=== PATIENT | female | born 1995 | race Caucasian/White ===

== ENCOUNTER 2021-04-03 08:49 | Emergency (ER) | payer OTHER, SELFPAY ==
[2021-04-03 09:26] VITALS: BP 167/89; PULSE 78; RESP 16; TEMP 36.4; O2SAT 100; BMI 38.4
--- NOTE | 2021-04-03 09:30 | ED_ITS ---
HPI - General: Chief complaint: Vaginal Bleeding Stated complaint: 5 weeks bleeding Time Seen by Provider: 04/03/21 08:55 History of Present Illness: HPI Narrative: Patient is a 25-year-old female that is 5 weeks and comes to the ED with vaginal bleeding. Bleeding started on Wednesday. Bleeding is reported as very light and she only notices some red blood when she wipes after going to the bathroom. she denies any fever, chills, nausea/emesis, abdominal pain or cramping. Denies any UTI symptoms or bowel symptoms. Date of Last Menstrual Period: 02/22/21 Associated symptoms: Deny abdominal pain, dysuria, headache(s), nausea or vomiting Review of Systems Const: Denies: fever(s), chills or fatigue Eyes: Denies: change in vision or eye discomfort ENMT: Denies: throat pain, odynophagia, nasal discharge or nasal congestion Card: Denies: chest pain, palpitations, edema, swelling of feet/ankles, dyspnea on exertion or orthopnea Resp: Denies: dyspnea, productive cough or non-productive cough GI: Denies: abdominal pain, nausea, vomiting, diarrhea, constipation or hematochezia : Reports: vaginal bleeding; Denies: flank pain, dysuria or hematuria Musc: Denies: neck pain, back pain or extremity swelling Skin/Breast: Denies: rash or new lesions Neuro: Denies: headache(s), numbness in extremities or weakness in extremities [facility] Female Reproductive History: Date of last menstrual period: 02/22/21 Physical Exam Const: COMMON NORMALS: no acute distress, patient oriented x3, healthy appearing and alert GENERAL APPEARANCE: cooperative and comfortable HENMT: COMMON NORMALS: normocephalic HEAD & SCALP: normocephalic MOUTH: Normal oral and palatal mucosa present THROAT: posterior oropharynx normal and uvula midline Neck/C-Spine: COMMON NORMALS: supple GENERAL: Yes normal visual inspection Resp: COMMON NORMALS: normal respiratory effort, No retractions, No use of accessory muscles and clear to auscultation bilaterally AUSCULTATION: clear to auscultation bilaterally Cardio: COMMON NORMALS: regular rate, regular rhythm, S1 normal heart sound present, S2 normal heart sound present, No gallops present (Cardio), No clicks present (Cardio), No murmurs present (Cardio) and Peripheral pulses 2+ throughout RATE: regular rate RHYTHM: regular rhythm HEART SOUNDS: S1 normal heart sound present and S2 normal heart sound present PERIPHERAL PULSES: Peripheral pulses 2+ throughout GI: COMMON NORMALS: Normal to inspection, nondistended, normoactive bowel sounds present, Soft to palpation, non-tender and no masses PALPATION: Yes Soft to palpation OTHER: Patient's abdomen is nontender to palpation. : COMMON NORMALS: Yes no CVA tenderness BLADDER/KIDNEY EXAM: Yes no CVA tenderness Back/Pelvis: COMMON NORMALS: no CVA tenderness Extremity: COMMON NORMALS: normal to inspection Neuro: COMMON NORMALS: patient oriented x3 and moves all extremities SENSORIUM/ORIENTATION: Yes alert Skin: GENERAL SKIN EXAM: dry skin Course Vital Signs: Vital signs: Vital Signs Temperature 98.7 F 04/03/21 13:03 Pulse Rate 89 04/03/21 13:37 Respiratory Rate 14 04/03/21 13:03 Blood Pressure 130/77 04/03/21 13:37 Pulse Oximetry 100 04/03/21 13:37 MDM - OB/Uterine Contractions MDM Narrative: Medical decision making narrative: Patient is a 25-year-old female comes to the ED 5 weeks and has some vaginal bleeding. Vaginal bleeding is light and patient only notices it after going to the bathroom after she wipes. Denies any abdominal pain, nausea/vomiting, fever or UTI symptoms. Vital stable. Patient appears healthy no acute distress the rest of exam is benign. CBC, UA and CMP are unremarkable. hCG quant 8,502. patient is Rh- and this is her second . OB ultrasound showed an intrauterine that is a little over 5 weeks in gestation. No heart rate detected yet but it is possibly too early to see it. Patient was given RhoGam today while in the ED. Radiologist recommended another ultrasound in a week to check for heart rate. Patient was discharged home and told to contact her OB doctor and have repeat hCG quant labs done in 3 days and to have an ultrasound done as well in about a week. Return to ED precautions given. Patient understood and agreed with plan. Lab Data: Attestation: I reviewed the patient's lab results. Labs: Lab Results 04/03/21 04/03/21 04/03/21 Range/Units 10:25 10:25 10:25 WBC 7.8 (4.0-10.0) 10^3/ uL RBC 4.81 (4.1-5.3) 10^6/u L Hgb 14.1 (11.5-15.3) g/dL Hct 42.3 (37.0-47.0) % MCV 87.9 (81-99) fL MCH 29.3 (28.0-34.0) pg MCHC 33.3 (30.0-36.0) g/dL RDW 12.7 (12.1-15.1) % Plt Count 323 (130-400) 10^3/c mm MPV 9.2 (7.4-10.4) fL Neut % (Auto) 60.7 % Lymph % (Auto) 28.9 % [place] % (Auto) 9.2 % Eos % (Auto) 0.5 % Baso % (Auto) 0.4 % Neut # (Auto) 4.76 (1.8-7.7) 10^3/u L Lymph # (Auto) 2.3 (0.8-4.8) 10^3/u L [place] # (Auto) 0.7 (0.2-0.9) 10^3/u L Eos # (Auto) 0.0 (0.0-0.8) 10^3/u L Baso # (Auto) 0.0 (0.0-0.1) 10^3/u L Nucleated RBC % (a uto) 0 % Nucleated RBCs # 0.0 /100WBC Sodium 136 (136-145) mmol/L Potassium 3.8 (3.5-5.1) mmol/L Chloride 101 (98-107) mmol/L Carbon Dioxide 23 (22-29) mmol/L Anion Gap 15.8 (5-19) BUN 6 (6-20) mg/dL Creatinine 0.6 (0.5-0.9) mg/dL GFR Calculation 119.9 (90-130) mL/min Glucose 79 (65-115) mg/dL Calculated Osmolal ity 279 L (285-295) mOsm/k g Calcium 9.0 (8.5-10.5) mg/dL Total Bilirubin 0.3 (0.15-1.2) mg/dL AST 24 (0-32) U/L ALT 51 H (0-33) U/L Alkaline Phosphata se 69 (35-105) IU/L Total Protein 7.1 (6.6-8.7) g/dL Albumin 4.4 (3.5-5.2) g/dL Globulin 2.7 (1.3-4.6) g/dL Ser , Kenny i-Qnt 8502.00 mIU/mL Urine Color (Yellow) Urine Appearance (CLEAR) Urine pH (5-7) Ur Specific Gravit y (1.005-1.030) Urine Protein (Negative) Urine Glucose (UA) (Normal) Urine Ketones (Negative) Urine Blood (Negative) Urine Nitrate (Negative) Urine Bilirubin (Negative) Prot Sulfosalicyli c Acd (Negative) Urine Urobilinogen (Negative) mg/dL Ur Leukocyte Iram ase (Negative) Urine RBC (0-2) /hpf Urine WBC (0-5) /hpf Ur Squamous Epith Cells (0-5) /hpf Amorphous Sediment Urine Bacteria (NONE) /hpf Urine Mucus /hpf Blood Type A Negative Rho(D) Type Negative / 0 Antibody Screen Negative 04/03/21 Range/Units 10:25 WBC (4.0-10.0) 10^3/ uL RBC (4.1-5.3) 10^6/u L Hgb (11.5-15.3) g/dL Hct (37.0-47.0) % MCV (81-99) fL MCH (28.0-34.0) pg MCHC (30.0-36.0) g/dL RDW (12.1-15.1) % Plt Count (130-400) 10^3/c mm MPV (7.4-10.4) fL Neut % (Auto) % Lymph % (Auto) % [place] % (Auto) % Eos % (Auto) % Baso % (Auto) % Neut # (Auto) (1.8-7.7) 10^3/u L Lymph # (Auto) (0.8-4.8) 10^3/u L [place] # (Auto) (0.2-0.9) 10^3/u L Eos # (Auto) (0.0-0.8) 10^3/u L Baso # (Auto) (0.0-0.1) 10^3/u L Nucleated RBC % (a uto) % Nucleated RBCs # /100WBC Sodium (136-145) mmol/L Potassium (3.5-5.1) mmol/L Chloride (98-107) mmol/L Carbon Dioxide (22-29) mmol/L Anion Gap (5-19) BUN (6-20) mg/dL Creatinine (0.5-0.9) mg/dL GFR Calculation (90-130) mL/min Glucose (65-115) mg/dL Calculated Osmolal ity (285-295) mOsm/k g Calcium (8.5-10.5) mg/dL Total Bilirubin (0.15-1.2) mg/dL AST (0-32) U/L ALT (0-33) U/L Alkaline Phosphata se (35-105) IU/L Total Protein (6.6-8.7) g/dL Albumin (3.5-5.2) g/dL Globulin (1.3-4.6) g/dL Ser , Kenny i-Qnt mIU/mL Urine Color Yellow (Yellow) Urine Appearance Clear (CLEAR) Urine pH 8 H (5-7) Ur Specific Gravit y 1.005 (1.005-1.030) Urine Protein Neg (Negative) Urine Glucose (UA) Norm (Normal) Urine Ketones Negative (Negative) Urine Blood 2+ H (Negative) Urine Nitrate Negative (Negative) Urine Bilirubin Neg (Negative) Prot Sulfosalicyli c Acd Negative (Negative) Urine Urobilinogen Norm (Negative) mg/dL Ur Leukocyte Iram ase Trace H (Negative) Urine RBC Rare (0-2) /hpf Urine WBC 0-4 H (0-5) /hpf Ur Squamous Epith Cells 0-4 H (0-5) /hpf Amorphous Sediment Not Reportable Urine Bacteria Trace (NONE) /hpf Urine Mucus Trace /hpf Blood Type Rho(D) Type Antibody Screen Imaging Data^: US OB: Attestation: I personally reviewed and interpreted this imaging study as follows: Radiologist's impression: [address] [place] [address] Ultrasound Report Signed Patient: Howard Hazel Unit #: [id number] : 1995 Age/Sex: 25 / F ADM Date: 04/03/21 Loc: ER Room/Bed: Attending Dr: Ordering Provider/Ordering MD: Chris Cohen Date of Service: 04/03/21 Procedure(s): US OB <=14 wk fetus w transvag Accession Number(s): [id number] Report Number: [id number] WS: [id number] EARLY OBSTETRICAL ULTRASOUND (<14 WEEKS). HISTORY: 5 weeks and vaginal bleeding COMPARISON: None available. Single intrauterine gestational sac is identified normally positioned along the endometrium. There is a yolk sac present. [place]-rump length of 0.2 cm corresponds to gestational age of 5 weeks and 5 days. No cardiac activity. Cervix is closed. Enlarged RIGHT ovary. Thick wall cyst associated with the RIGHT ovary is probably a corpus luteum. The entire complex measures 4.3 x 2.9 x 3.4 cm. There is normal vascularity. LEF T ovary is normal size. US/US OB <=14 wk fetus w transvag IMPRESSION: 1. Single intrauterine gestation of 5 weeks and 5 days. No cardiac activity at this time. Recommend one week follow-up to confirm developing cardiac activity. 2. Enlarged RIGHT ovary with a cyst and a corpus luteal cyst. Dictated By: Ginny Bautista DO Signed By: Ginny Bautista DO Signed Date/Time: 04/03/21 1255 DD/ 1251 Discharge Plan Discharge Patient Disposition: Home Clinical Impression: Vaginal bleeding before 22 weeks gestation Condition: Stable Prescriptions: No Action Multivitamins 28 mg iron- 800 mcg Tablet 1 tab PO DAILY RF: 0 Metamucil 3.4 gram/5.4 gram Powder 1 tbsp PO QPM RF: 0 Discharge Orders: Discharge ED (Routine); Ordered 04/03/21 Ordered By: Chris Cohen Referrals: Tripp Blandon MD [Primary Care Provider] - Discharge Diet: Regular Discharge Activity: Increase activity as tolerated Activity Restrictions/Additional Instructions: Follow-up with OB provider within the next week for reevaluation. Have hCG quant level rechecked in 3 days. Take [id number] Tylenol for any fever or pain. Return to the ER or your medical provider if condition worsens. Please read and understand discharge instructions. [email or web address]. Please realize this is an emergency room and that we are providing you with a medical screening exam and this may not be complete and all inclusive of all the testing and or work up that you may need to determine your ailment or severity of your illness. It is very important that you follow up as instructed or that you return to the Emergency Department should you have concerns or if your condition changes or worsens in any way. Coding Level of Care Code ED French Professor for Alayna Fwd Exam Comprehensive
--- NOTE | 2021-04-03 10:24 | US_ITS ---
WS: [id number] EARLY OBSTETRICAL ULTRASOUND (<14 WEEKS). HISTORY: 5 weeks and vaginal bleeding COMPARISON: None available. Single intrauterine gestational sac is identified normally positioned along the endometrium. There is a yolk sac present. [place]-rump length of 0.2 cm corresponds to gestational age of 5 weeks and 5 days . No cardiac activity. Cervix is closed. Enlarged RIGHT ovary. Thick wall cyst associated with the RIGHT ovary is probably a corpus luteum. Th e entire complex measures 4.3 x 2.9 x 3.4 cm. There is normal vascularity. LEFT ovary is normal size. US/US OB <=14 wk fetus w transvag IMPRESSION: 1. Single intrauterine gestation of 5 weeks and 5 days. No cardiac activity at this time. Recommend one week follow-up to confirm developing cardiac activity . 2. Enlarged RIGHT ovary with a cyst and a corpus luteal cyst.
[2021-04-03 10:36] LABS: Basophils % 0.4 %; Eosinophils % 0.5 %; Hematocrit 42.3 % (37.0-47.0); Hemoglobin 14.1 g/dL (11.5-15.3); Lymphocytes # 2.3 10^3/uL (0.8-4.8); Lymphocytes % 28.9 %; Mean Corpuscular HGB Conc 33.3 g/dL (30.0-36.0); Mean Corpuscular Hemoglobin 29.3 pg (28.0-34.0); Mean Corpuscular Volume 87.9 fL (81-99); Mean Platelet Volume 9.2 fL (7.4-10.4); Monocytes # 0.7 10^3/uL (0.2-0.9); Monocytes % 9.2 %; Neutrophils # 4.76 10^3/uL (1.8-7.7); Neutrophils % 60.7 %; Nucleated Red Blood Cells % 0 %; Platelet Count 323 10^3/cmm (130-400); Red Blood Count 4.81 10^6/uL (4.1-5.3); Red Cell Distribution Width 12.7 % (12.1-15.1); White Blood Count 7.8 10^3/uL (4.0-10.0)
[2021-04-03 11:34] LABS: Alanine Aminotransferase 51 U/L (0-33); Albumin Level 4.4 g/dL (3.5-5.2); Alkaline Phosphatase 69 IU/L (35-105); Anion Gap 15.8 (5-19); Aspartate Amino Transferase 24 U/L (0-32); Blood Urea Nitrogen 6 mg/dL (6-20); Carbon Dioxide 23 mmol/L (22-29); Chloride 101 mmol/L (98-107); Globulin 2.7 g/dL (1.3-4.6); Glomerular Filtration Rate 119.9 mL/min (90-130); Glucose 79 mg/dL (65-115); Osmolality Calculated 279 mOsm/kg (285-295); Potassium 3.8 mmol/L (3.5-5.1); Sodium 136 mmol/L (136-145); Total Bilirubin 0.3 mg/dL (0.15-1.2); Total Protein 7.1 g/dL (6.6-8.7)
[2021-04-03 11:35] LABS: Urine Appearance Clear (CLEAR); Urine Color Yellow (Yellow); pH Urine 8 (5-7)
[2021-04-03 11:36] LABS: Bilirubin Urine Neg (Negative); Blood Urine 2+ (Negative); Glucose Urine UA Norm (Normal); Ketones Urine Negative (Negative); Leukocyte Esterase Urine Trace (Negative); Nitrate Urine Negative (Negative); Protein Urine Neg (Negative); Specific Gravity, Urine 1.005 (1.005-1.030); Sulfosalicylic Acid Urine Negative (Negative); Urobilinogen Urine Norm (Negative)
[2021-04-03 11:38] LABS: RBC Urine RARE /hpf (0-2); Squamous Epithelial Cell Urine 0-4 /hpf (0-5); WBC Urine 0-4 /hpf (0-5)
[2021-04-03 11:39] LABS: Add Urine Culture? No; Bacteria Urine TRACE /hpf; Mucus Urine TRACE /hpf
[2021-04-03 13:03] VITALS: BP 128/62; PULSE 62; RESP 14; TEMP 37.1; O2SAT 99
[2021-04-03 13:37] VITALS: BP 130/77; PULSE 89; O2SAT 100
== END 2021-04-03 13:39 | disposition home or self-care (01) ==
PROVIDERS: Emergency Provider Physician Assistant; PCP Family Medicine
DX: O20.9 Hemorrhage in early pregnancy, unspecified (principal); Z3A.01 Less than 8 weeks gestation of pregnancy; O26.891 Other specified pregnancy related conditions, first trimester; Z67.91 Unspecified blood type, Rh negative
CPT/HCPCS: 76801; 76817; 80053; 81001; 84702; 85025; 86850; 86900; 90384; 99283

== ENCOUNTER 2021-10-10 14:50 | Outpatient (CLI) | payer OTHER, SELFPAY ==
[2021-10-10 14:50] VITALS: BMI 40.3
[2021-10-10 15:29] LABS: Actim Prom Negative
== END 2021-10-10 15:35 | disposition home or self-care (01) ==
LOC: OPOB 14:59 → OBGYN 15:00
PROVIDERS: PCP Family Medicine; Visit Provider Family Medicine
DX: O26.899 Other specified pregnancy related conditions, unspecified trimester (principal); Z3A.00 Weeks of gestation of pregnancy not specified; N89.8 Other specified noninflammatory disorders of vagina
CPT/HCPCS: 83986; 84112

== ENCOUNTER 2021-11-12 19:02 | Inpatient (IN) | payer OTHER, SELFPAY ==
[2021-11-12] VITALS (39 sets, daily range): BP systolic 120–174; BP diastolic 55–86; PULSE 76–104; RESP 15; O2SAT 100; BMI 40.3
[2021-11-12 19:45] LABS: Nitrazine Paper, PH Positive
[2021-11-12 19:52] LABS: Basophils % 0.1 %; Eosinophils % 0.1 %; Hematocrit 34.9 % (37.0-47.0); Hemoglobin 12.2 g/dL (11.5-15.3); Lymphocytes # 1.8 10^3/uL (0.8-4.8); Lymphocytes % 21.4 %; Mean Corpuscular Hemoglobin 30.6 pg (28.0-34.0); Mean Corpuscular Volume 87.5 fl (81-99); Mean Platelet Volume 9.2 fL (7.4-10.4); Monocytes # 0.7 10^3/uL (0.2-0.9); Monocytes % 8.3 %; Neutrophils % 69.7 %; Nucleated Red Blood Cells % 0 %; Platelet Count 256 10^3/cmm (130-400); Red Blood Count 3.99 10^6/uL (4.1-5.3); Red Cell Distribution Width 12.7 % (12.1-15.1); White Blood Count 8.5 10^3/uL (4.0-10.0)
[2021-11-12] MEDS: dextrose 5%-lactated ringers 1,000 ML 125 ML IV (20:36)
[2021-11-12] MEDS: oxytocin 30 UNIT/500 ML BAG IV (20:37)
[2021-11-12] MEDS: lactated ringers 1,000 ML 999 ML IV ×2 (21:20→22:24)
--- NOTE | 2021-11-12 22:18 | ANES.PREANE2 ---
Pre-Anesthetic Assessment Height/Weight: Height 1.75 m Weight 123.831 kg Pulse BP 86 128/75 11/12/21 22:02 11/12/21 22:02 Preop Diagnosis: labor pain epidural Familial anesthetic complications: none Was Beta Tamir taken within 24 hours: N/A Was Clonidine taken within 24 hours: N/A Social No alcohol and No tobacco Exam alert, oriented x 3, clear to auscultation bilaterally and regular rate & rhythm Airway Submandibular: within normal limits Cervical ROM: within normal limits Mallampati: Class II Dentition: full Pulmonary None reported CV/HEM None reported None reported Hepatic None reported GI None reported Metabolic None reported Musc/skel None reported Neuropsych None reported Anesthetic Plan ASA status: 2 Anesthesia: Regional (specify below) Risk of > 500 ml blood loss (7ml/kg in children): No Medications/Allergies Home Medications Medication Instructions Recorded Confirmed Last Taken Type vit no.95-ferrous 1 tab PO DAILY 04/03/21 10/10/21 11/11/21 20:30 History fumarate 28 mg-folic acid 800 mcg tablet ( Multivitamins) psyllium husk 3.4 gram/5.4 gram 1 tbsp PO QPM 04/03/21 10/10/21 04/02/21 History oral powder (Metamucil) Allergies Allergy/AdvReac Type Severity Reaction Status Date / Time No Known Allergies Allergy Verified 10/10/21 19:32 Current Medications Generic Name Dose Route Start Last Admin Trade Name Freq PRN Reason Stop Dose Admin Dextrose/Lactated Ringer's 1,000 mls @ 125 mls/hr 11/12/21 18:45 11/12/21 20:36 Dextrose 5%-Lactated Ringers IV 125 mls/hr .Q8H SUSAN Administration Oxytocin 30 unit in 500 mls @ 1 mls/hr 11/12/21 19:30 11/12/21 21:20 Pitocin IV 5 milliunit/min .Q24H SUSAN 5 mls/hr Titration Protocol 1 MILLIUNIT/MIN Lactated Ringer's 1,000 mls @ 999 mls/hr 11/12/21 21:14 11/12/21 21:20 Lactated Ringers IV 999 mls/hr .Q1H1M PRN Administration See label comments PFSH Anesthesia Female Reproductive History Date of last menstrual period: 02/22/21 : 2 Data Anesthesia : 11/12/21 19:30 Short CBC 11/12/21 Range/Units 19:30 WBC 8.5 (4.0-10.0) 10^3/uL Hgb 12.2 (11.5-15.3) g/dL Hct 34.9 L (37.0-47.0) % MCV 87.5 (81-99) fl Plt Count 256 (130-400) 10^3/cmm Neut % (Auto) 69.7 % Neut # (Auto) 5.90 (1.8-7.7) 10^3/uL Cardiac Studies: No Data to Display
--- NOTE | 2021-11-12 22:56 | P.ANES_ITS ---
Anesthesia Procedures Procedure/Date: 11/12/21 epidural Procedure Narrative: epidural complete, bolus given, epidural pump initiated with INSPECTOR WATCH ASSEMBLY education given, vitals taken during procedure using OBIX system and satisfactory throughout, patient admits to decrease pain, report of procedure to OB RN Epidural: Time Out Performed: Yes Consents Signed: Procedure Consent Consent: requested by attending/covering physician, from patient, risks and benefits reviewed and patient agrees to proceed Lumbar Level: L3-L4 Epidural position: sitting Epidural procedure: sterile prep of area, 1% lidocaine to numb the area (3 mL), 18 g needle, negative for paresthesia passed, neg for paresthesia, test dose given, 1.5% xylocaine 1:200k epi (5 mL), 0.2% Ropivacaine bolus ml (5 mL), placed PCEA, no systemic response, sterile dressing applied, L.U.D. no apparent complications and 0.2% Ropiavacaine @ mls/hr (13 mL/hr)
[2021-11-13] VITALS (26 sets, daily range): BP systolic 115–147; BP diastolic 57–92; PULSE 62–100; RESP 14–17; TEMP 36.2–36.5; O2SAT 97
--- NOTE | 2021-11-13 02:44 | P.PCNOB_ITS ---
Delivery Note: Date of delivery: November 13, 2021 Pre-Delivery Course: The patient had routine care at [facility] with Dr. Blandon. This physician is covering while he is out of town. The patient was blood type a negative antibody positive for anti-D titer<1:1, GC chlamydia negative, hepatitis B surface antigen nonreactive, hepatitis C antibody nonreactive, HIV nonreactive, rubella immune, RPR nonreactive, UDS negative, Qnatal low risk, she passed her glucose tolerance test. She was also GBS negative. Delivery: This is a 25-year-old G2, P1 at 37 weeks 5 days gestation who presented to labor and delivery with spontaneous rupture of membranes. This happened around 1610 on 11/12, the day of admission. The patient was admitted for expectant management. She was not [place] on her own so Pitocin was used to augment. She did receive an epidural for pain management. Her labor progressed rather quickly after receiving the epidural and she had a normal spontaneous vaginal delivery of a viable male weight 3600 g, 7 pounds 15 ounces. The infant was suctioned at delivery and placed on the mother's chest. The cord was clamped and cut. Cord blood was obtained. The p lacenta was delivered grossly intact and normal to inspection. There was a first-degree perineal laceration that was sutured using 3-0 chromic. Estimated blood loss 150 mL. Mother and infant were doing well after delivery Coding Level of Care Code Acute Para Machine Operator for Alayna Merrill
--- NOTE | 2021-11-13 02:44 | PM.OPHPUD ---
Labor & Delivery H&P Update Date of Procedure: November 13, 2021 Date H&P Performed: 11/13/21 Admission Diagnosis: Preop diagnosis: labor pain
[2021-11-13] MEDS: acetaminophen 325 mg Tablet 650 MG PO (06:05)
[2021-11-13] MEDS: docusate sodium 100 mg Capsule PO (09:09)
[2021-11-13] MEDS: ibuprofen 800 mg tablet PO ×3 (09:09→21:02)
[2021-11-13] MEDS: prenatal vitamin Capsule 1 CAP PO (09:10)
--- NOTE | 2021-11-13 10:34 | PC.NURSE ---
pt ambulated to OB 8. oriented to room/call light and proud parent pack. IV removed, shower supplies provided.
--- NOTE | 2021-11-13 13:46 | ANE.PACU2 ---
Inpatient post-anesthesia follow up: Airway intact: Yes Vital signs: Temperature 97.6 F Pulse Rate 79 Respiratory Rate 16 Blood Pressure 121/81 Pulse Oximetry 100 Oxygen Delivery Me thod Room Air Oxygen Flow Rate Fraction of Inspir ed Oxygen Hydration adequate: Yes Nausea and vomiting: No Pain level: 1 Mental status: Baseline
[2021-11-13 14:58] LABS: Hematocrit 32.5 % (37.0-47.0); Mean Corpuscular HGB Conc 33.8 g/dL (30.0-36.0); Mean Corpuscular Hemoglobin 29.9 pg (28.0-34.0); Mean Corpuscular Volume 88.3 fl (81-99); Mean Platelet Volume 9.5 fL (7.4-10.4); Platelet Count 240 10^3/cmm (130-400); Red Blood Count 3.68 10^6/uL (4.1-5.3); Red Cell Distribution Width 12.7 % (12.1-15.1); White Blood Count 9.3 10^3/uL (4.0-10.0)
[2021-11-14 04:21] VITALS: BP 105/63; PULSE 64; RESP 14; O2SAT 97
[2021-11-14] MEDS: prenatal vitamin Capsule 1 CAP PO (09:26)
[2021-11-14] MEDS: docusate sodium 100 mg Capsule PO (09:26)
[2021-11-14] MEDS: ibuprofen 800 mg tablet PO (09:26)
[2021-11-14 12:04] VITALS: PULSE 62; RESP 18
--- NOTE | 2021-11-14 12:30 | P.DS_ITS ---
Discharge Providers Date of Admission: 11/12/21 19:02 Date of Discharge: November 14, 2021 Attending Provider at Admission: Elham Rivera MD Attending Provider at Discharge: Elham Rivera MD Primary Care Provider: Tripp Blandon MD Reason for Visit Reason for Visit: labor Hospital Course Hospital Course This is a 25-year-old G2 now P2 who was admitted after having spontaneous rupture of membranes. Her labor was augmented using Pitocin and she had a normal spontaneous vaginal delivery of a viable male infant. She did well and on day #1 she was ambulating, tolerating a regular diet, had no pain, and had decreased vaginal bleeding. Physical Exam Narrative: Alert and oriented, sitting on bedside couch, lungs clear to auscultation, heart regular rate and rhythm, abdomen is soft and nontender, fundus is firm, trace pedal edema but no calf tenderness Urinary Catheter Management: Flores: Cath Placed During This Visit: yes Urinary Catheter Date of Insertion: 11/12/21 Urinary Catheter Time of Insertion: 23:40 Discharge Data Studies Completed and Pending Laboratory Results WBC 9.3 10^3/uL (4.0-10.0) 11/13/21 14:45 RBC 3.68 10^6/uL (4.1-5.3) L 11/13/21 14:45 Hgb 11.0 g/dL (11.5-15.3) L 11/13/21 14:45 Hct 32.5 % (37.0-47.0) L 11/13/21 14:45 MCV 88.3 fl (81-99) 11/13/21 14:45 MCH 29.9 pg (28.0-34.0) 11/13/21 14:45 MCHC 33.8 g/dL (30.0-36.0) 11/13/21 14:45 RDW 12.7 % (12.1-15.1) 11/13/21 14:45 Plt Count 240 10^3/cmm (130-400) 11/13/21 14:45 MPV 9.5 fL (7.4-10.4) 11/13/21 14:45 Neut % (Auto) 69.7 % 11/12/21 19:30 Lymph % (Auto) 21.4 % 11/12/21 19:30 [place] % (Auto) 8.3 % 11/12/21 19:30 Eos % (Auto) 0.1 % 11/12/21 19:30 Baso % (Auto) 0.1 % 11/12/21 19:30 Neut # (Auto) 5.90 10^3/uL (1.8-7.7) 11/12/21 19:30 Lymph # (Auto) 1.8 10^3/uL (0.8-4.8) 11/12/21 19:30 [place] # (Auto) 0.7 10^3/uL (0.2-0.9) 11/12/21 19:30 Eos # (Auto) 0.0 10^3/uL (0.0-0.8) 11/12/21 19:30 Baso # (Auto) 0.0 10^3/uL (0.0-0.1) 11/12/21 19:30 Nucleated RBC % (auto) 0 % 11/12/21 19: Nucleated RBCs # 0.0 /100WBC 11/12/21 19:30 Blood Type A Negative 11/12/21 19:30 Rho(D) Type Negative 11/12/21 19:30 Antibody Screen Negative 11/12/21 19:30 Screen Negative (Negative) 11/13/21 14:45 Vitals Last Vital Signs Temp 97.7 F 11/13/21 15:55 Pulse 62 11/14/21 12:04 Resp 18 11/14/21 12:04 BP 105/63 11/14/21 04:21 Pulse Ox 97 11/14/21 04:21 Discharge Plan Discharge Patient Disposition: Home Condition: Stable Prescriptions: Continued PNV cmb#95-ferrous fumarate-FA [ Multivitamins] 28 mg iron- 800 mcg Tablet 1 tab PO DAILY 0RF Metamucil 3.4 gram/5.4 gram Powder 1 tbsp PO QPM 0RF Discharge Orders: Discharge Order (Routine); Ordered 11/14/21 Ordered By: Elham Rivera Referrals: Tripp Blandon MD [Primary Care Provider] - 6 Weeks Discharge Diet: Usual diet Discharge Activity: Limit activity as instructed Patient Instructions: Depression (DC), Bleeding (ED), Preeclampsia and Eclampsia After Delivery (GEN), OB Discharge Report, OB Food/Drug Interaction Guide, OB Care at Home, Opioid Safety, OB Home Care, OB Proud Parent Packet, OB Vaginal Deliveries, Abnormal Bleeding Discharge Attestations Time Spent in Discharge Care*: less than 30 min Quality Metrics Clinical Quality Measures [ No reported AMI, CVA or VTE this stay] Coding Level of Care Code Acute Chg FW DC note
[2021-11-14 14:29] VITALS: BP 136/86; PULSE 72; RESP 18; TEMP 36.7
[2021-11-14 15:03] VITALS: BP 136/86; PULSE 72; RESP 18; TEMP 36.7
== END 2021-11-14 14:35 | disposition home or self-care (01) | DRG 807 ==
LOC: OPOB 19:03 → OBGYN 19:03
PROVIDERS: Admitting Provider Family Medicine; PCP Family Medicine; Visit Provider Family Medicine
DX: O99.344 Other mental disorders complicating childbirth (principal); Z37.0 Single live birth; F41.9 Anxiety disorder, unspecified; F32.A Depression, unspecified; O99.284 Endocrine, nutritional and metabolic diseases complicating childbirth; E28.2 Polycystic ovarian syndrome; O70.0 First degree perineal laceration during delivery; Z3A.37 37 weeks gestation of pregnancy
CPT/HCPCS: 36415; 51702; 59025; 59409; 83986; 85025; 85027; 85460; 86850; 86900; 90384; 99211; J2795

== ENCOUNTER 2023-03-13 16:23 | Emergency (ER) | payer OTHER, SELFPAY ==
[2023-03-13 16:42] VITALS: PULSE 86; RESP 16; TEMP 36.9; O2SAT 98
--- NOTE | 2023-03-13 17:13 | ED_ITS ---
HPI - Wound/Laceration General: Chief Complaint: Wound/Laceration Stated Complaint: Stabbed self in hand opening a vahid toy Time Seen by Provider: 03/13/23 16:52 Source: patient Mode of arrival: ambulatory Limitations: no limitations History of Present Illness: Patient presents emergency department today for evaluation treatment of laceration to her left thenar region. Patient states that while trying to open a toy from the packaging, she lacerated her hand while using a pocket knife. Bleeding is controlled. Patient presents with Steri-Strips in place. She is unsure of her last tetanus immunization. Review of Systems General: Reports: 10 or more systems reviewed and unremarkable except in HPI and below Physical Exam Const: COMMON NORMALS: no acute distress, average body habitus and patient oriented x3 HENMT: COMMON NORMALS: normocephalic, atraumatic, hearing grossly normal bilaterally, Normal external nose present and moist oral mucous membranes HEAD & SCALP: normocephalic and atraumatic NOSE: Normal external nose present Eye: COMMON NORMALS: Equal, round and reactive pupils present, EOMs intact bilaterally and conjunctivae normal CONJUNCTIVA: Yes conjunctivae normal PUPIL: Yes Equal, round and reactive pupils present Neck/C-Spine: COMMON NORMALS: no JVD Lymph: LYMPHATIC: no lymphadenopathy noted Resp: COMMON NORMALS: normal respiratory effort, No retractions and No use of accessory muscles Cardio: COMMON NORMALS: no JVD, regular rate and regular rhythm RATE: regular rate RHYTHM: regular rhythm GI: COMMON NORMALS: Normal to inspection, nondistended, normoactive bowel sounds present : COMMON NORMALS: Yes no CVA tenderness BLADDER/KIDNEY EXAM: Yes no CVA tenderness Back/Pelvis: COMMON NORMALS: no CVA tenderness and thoraco-lumbar ROM normal Extremity: COMMON NORMALS: normal to inspection, full ROM and capillary refill normal NARRATIVE EXTREMITY EXAM: Patient has full range of motion to all joints of the thumb without deficit. Neuro: COMMON NORMALS: patient oriented x3 Psych: COMMON NORMALS: mental status grossly normal, Normal thought process present, cooperative, normal affect and activity/motor behavior normal THOUGHT PROCESS: Normal thought process present Skin: NARRATIVE SKIN EXAM: Patient has a linear laceration approximately 1 cm in length without wound edge separation at rest located on the left mid thenar region.. No active bleeding. After removal of the Steri-Strips, manual wound edge separation revealed full- thickness skin laceration without extension into the muscle layer. No wound edge separation through typical range of motion. Wound edge separation only with additional pressure and manipulation of the thumb hyperextended at the MCP joint. Procedures Laceration Laceration 1: Site: hand (thenar) Side (If applicable): left Size (cm): 1 Description: linear and clean Depth: simple, single layer Skin layer closed with: other (glue) Course Vital Signs: Vital signs: Vital Signs Temperature 98.5 F 03/13/23 16:42 Pulse Rate 86 03/13/23 16:42 Respiratory Rate 16 03/13/23 16:42 Pulse Oximetry 98 03/13/23 16:42 Oxygen Delivery Me thod Room Air 03/13/23 16:42 MDM - Wound/Laceration Medical Decision Making Patient presents today with a linear laceration to the left thenar region. Patient was able to perform basic range of motion of the thumb without issue and, without wound edge separation. Patient's wound was cleaned using sterile saline flushes and Betadine. Wound was repaired using surgical grade glue. Kristen alejandro's tetanus immunization was updated today. We went over care for wounds with surgical glue. Encouraged her to avoid getting the area wet or submerged for sudden amounts of time to prevent softening of the glue prematurely. Went over signs and symptoms of infection for which patient should be seen and reevaluated. Patient verbalized understanding and agreement to treatment plan. Differential Diagnosis Likely laceration, abrasion and avulsion of skin Discharge Plan Discharge Patient Disposition: Home Clinical Impression: Laceration of hand, left Condition: Stable Prescriptions: No Action PNV [id number] [ Multivitamins] 28 mg iron- 800 mcg Tablet 1 tab PO DAILY Metamucil 3.4 gram/5.4 gram Powder 1 tbsp PO QPM Discharge Orders: Discharge ED (Routine); Ordered 03/13/23 Ordered By: Maday Clarke Referrals: Tripp Blandon MD [Primary Care Provider] - Discharge Diet: Usual diet Discharge Activity: Increase activity as tolerated Patient Instructions: Suture Care - Skin Glue Activity Restrictions/Additional Instructions: Examination of your wound today showed minimal to no wound edge separation with range of motion of your thumb. Since bleeding is also controlled, we were able to repair your laceration using surgical grade adhesive. This adhesive can become wet but we do not recommend soaking it or submerging your hands in water. Glue should come off on its own in the next 5 to 7 days. We recommend avoiding any picking of the glue as it can cause early removal and reopening of the wound edges. You tolerated cleaning of your wound with Betadine and would expect no issues with infection however, we do want you to watch for any sudden onset swelling, redness, or draining of a thick green or yellow material. If that occurs need to be seen and reevaluated. We updated your tetanus immunization here in the emergency department as well. Coding Level of Care Code ED Manager Of Financial for Alayna Merrill
[2023-03-13 17:19] VITALS: BP 145/89; PULSE 84; RESP 18; TEMP 36.6; O2SAT 98
== END 2023-03-13 17:21 | disposition home or self-care (01) ==
PROVIDERS: Emergency Provider Physician Assistant; PCP Family Medicine
DX: S61.412A Laceration without foreign body of left hand, initial encounter (principal); W26.0XXA Contact with knife, initial encounter
CPT/HCPCS: 12001; 99282